=== PATIENT | female | born 1980 | race Caucasian/White ===

== ENCOUNTER → 2023-06-29 16:36 | Outpatient (REF) | payer OTHER, SELFPAY | LOC: WDC 16:36 | PROVIDERS: ATTENDING PHYSICIAN Nurse Practitioner Women's Health; FAMILY PHYSICIAN Family Medicine | DX: Z12.31 Encounter for screening mammogram for malignant neoplasm of breast (principal) | CPT/HCPCS: 77063; 77067 ==

== ENCOUNTER → 2024-07-08 08:23 | Outpatient (REF) | payer OTHER, SELFPAY | LOC: WDC 08:23 | PROVIDERS: ATTENDING PHYSICIAN Nurse Practitioner Women's Health; FAMILY PHYSICIAN Family Medicine | DX: Z12.31 Encounter for screening mammogram for malignant neoplasm of breast (principal) | CPT/HCPCS: 77063; 77067 ==